=== PATIENT | female | born 1990 | race African-American/Black ===

== ENCOUNTER 2018-08-18 01:40 | Emergency (ER) | payer SELFPAY ==
[~2018-08-18] VITALS: Ht 162.6 cm; Wt 72.0 kg
[2018-08-18 03:36] VITALS: BP 124/68
== END 2018-08-18 04:34 | disposition home or self-care (01) ==
LOC: EMS 01:42
DX: S63.501A Unspecified sprain of right wrist, initial encounter (principal); S80.01XA Contusion of right knee, initial encounter; S80.02XA Contusion of left knee, initial encounter; V43.52XA Car driver injured in collision with other type car in traffic accident, initial encounter; Y93.89 Activity, other specified; Y92.89 Other specified places as the place of occurrence of the external cause; Y99.8 Other external cause status